=== PATIENT | female | born 1955 | race Caucasian/White ===

== ENCOUNTER → 2017-05-20 | Outpatient (CLI) | payer OTHER ==
[~2017-05-20] MED LIST: CRESTOR40 MG PO; GLUCOPHAGE500 MG PO
== END | disposition home or self-care (01) ==
LOC: RAD 09:57
DX: Z02.71 Encounter for disability determination (principal); M11.261 Other chondrocalcinosis, right knee; M17.11 Unilateral primary osteoarthritis, right knee
CPT/HCPCS: 73560

== ENCOUNTER → 2017-06-10 | Outpatient (CLI) | payer OTHER ==
[~2017-06-10] VITALS: Ht 162.6 cm; Wt 68.1 kg
[~2017-06-10] MED LIST changes: +ANORO ELLIPTA1 EACH IH; +DITROPAN XL10 MG PO; +NAPROSYN500 MG PO; +VENTOLIN HFA18 GM IH; +ZANTAC150 MG PO
== END | disposition home or self-care (01) ==
LOC: AMB 13:57
DX: R19.7 Diarrhea, unspecified (principal); R10.31 Right lower quadrant pain; Z53.09 Procedure and treatment not carried out because of other contraindication; K59.00 Constipation, unspecified; R12 Heartburn; R68.81 Early satiety; E11.9 Type 2 diabetes mellitus without complications; E78.5 Hyperlipidemia, unspecified; F32.9 Major depressive disorder, single episode, unspecified; Z77.22 Contact with and (suspected) exposure to environmental tobacco smoke (acute) (chronic); Z87.891 Personal history of nicotine dependence
CPT/HCPCS: 88305; 88313

== ENCOUNTER 2017-12-18 15:06 | Emergency (ER) | payer OTHER ==
[~2017-12-18] VITALS: Ht 160 cm; Wt 61.6 kg
[2017-12-18 16:00] LABS: BASOPHIL (%) 0.4 % (0-1); EOSINOPHIL (%) 0.8 % (0-5); EOSINOPHIL COUNT 0.1 K/uL (0-0.3); HEMATOCRIT 36.8 % (36.0-46.0); HEMOGLOBIN 12.1 G/DL (11.9-15.5); IMMATURE GRANULOCYTE (%) 0.3 % (0.0-0.7); LYMPHOCYTE (%) 25.6 % (15-42); LYMPHOCYTE COUNT 2.3 K/uL (1.0-2.8); MCH 29.3 PG (29.0-34.0); MCHC 32.9 G/DL (30.0-36.0); MCV 89.1 FL (83-99); MONOCYTE (%) 7.6 % (3-12); MONOCYTE COUNT 0.7 K/uL (0-0.8); NEUTROPHIL (%) 65.3 % (45-76); NEUTROPHIL COUNT 5.8 K/uL (1.8-6.4); PLATELET COUNT 295 K/uL (156-360); RBC DIS.WIDTH-CV 14.4 % (11.8-14.6); RBC DIS.WIDTH-SD 46.9 % (39-53); RED BLOOD COUNT 4.13 M/uL (3.80-5.20); WHITE BLOOD COUNT 8.9 K/uL (4.1-10.2)
[2017-12-18 16:08] LABS: ALBUMIN 4.1 g/dL (3.2-4.8); CHLORIDE 106 mEq/L (99-109); POTASSIUM 4.1 mEq/L (3.7-5.4); SODIUM 144 mEq/L (136-147)
[2017-12-18 16:10] LABS: GLUCOSE 95 mg/dL (70-99)
[2017-12-18 16:12] LABS: TOTAL BILIRUBIN 0.5 mg/dL (0.0-1.0)
[2017-12-18 16:14] LABS: ALKALINE PHOSPHATASE 100 IU/L (3-129); CREATININE 0.8 mg/dL (0.6-1.3); GFR ESTIMATE (CALCULATED) > 59 mL/min/
[2017-12-18 16:15] LABS: UREA NITROGEN (BUN) 9 mg/dL (9-23)
[2017-12-18 16:16] LABS: AST (GOT) 13 IU/L (2-34)
[2017-12-18 16:17] LABS: ALT (GPT) 13 IU/L (3-49); LIPASE 19 U/L (1.0-51.0)
[2017-12-18 16:21] LABS: APPEARANCE SL.HAZY ((CLEAR)); BILIRUBIN NEGATIVE; BLOOD NEGATIVE; COLOR YELLOW ((YELLOW)); GLUCOSE (STRIP) NEGATIVE; KETONES NEGATIVE; LEUKOCYTES LARGE; NITRITE NEGATIVE; PROTEIN (STRIP) NEGATIVE; SPECIFIC GRAVITY 1.009 (1.000-1.030); UROBILINOGEN 0.2 MG/DL (0.2-1.0)
[2017-12-18 16:23] LABS: TROP-I INTERPRETATION NEGATIVE; TROPONIN-I < 0.01 ng/mL (0.0-0.30)
[2017-12-18 16:41] LABS: BACTERIA RARE /HPF; EPITHELIAL CELLS 2+ /HPF; MUCUS TRACE /LPF; UCUL ADDED? YES
[2017-12-18 18:35] LABS: THYROTROPIN (TSH) 8.4 MIU/L (0.4-5.5)
[2017-12-18] MEDS ORDERED: KEFLEX500 MG PO (19:59)
[2017-12-18 20:05] VITALS: BP 135/79
== END 2017-12-18 20:08 | disposition home or self-care (01) ==
LOC: EME 15:06
PROVIDERS: Emergency Medicine
DX: E86.0 Dehydration (principal); R42 Dizziness and giddiness; N39.0 Urinary tract infection, site not specified; E11.51 Type 2 diabetes mellitus with diabetic peripheral angiopathy without gangrene; I70.209 Unspecified atherosclerosis of native arteries of extremities, unspecified extremity; R94.6 Abnormal results of thyroid function studies; J43.9 Emphysema, unspecified; I10 Essential (primary) hypertension; E78.5 Hyperlipidemia, unspecified; K21.9 Gastro-esophageal reflux disease without esophagitis; Z87.891 Personal history of nicotine dependence
CPT/HCPCS: 70450; 71046; 74177; 80053; 81003; 83690; 84443; 84484; 85025; 87086; 93005; 99281; 99285; J7030; J7040

== ENCOUNTER → 2018-02-14 | Outpatient (CLI) | payer OTHER ==
[~2018-02-14] MED LIST changes: +KEFLEX500 MG PO
== END | disposition home or self-care (01) ==
LOC: CDC 11:59
DX: Z01.810 Encounter for preprocedural cardiovascular examination (principal); I70.25 Atherosclerosis of native arteries of other extremities with ulceration; R94.31 Abnormal electrocardiogram [ECG] [EKG]
CPT/HCPCS: 93000

== ENCOUNTER 2018-03-28 22:34 | Inpatient (IN) | payer OTHER ==
[~2018-03-28] VITALS: Ht 162.6 cm; Wt 65.1 kg
[~2018-03-28 22:34] MED LIST changes: -ANORO ELLIPTA1 EACH IH; +ASPIRIN81 M2 PO; +CILOSTAZOL50 MG PO; +DITROPAN5 MG PO; +INHALER; +LIPITOR20 MG PO; +MECLIZINE HCL25 MG PO; +SPIRIVA18 MCG IH; +STOOL SOFTENER100 MG PO; +SYNTHROID25 MCG PO
[2018-03-29 08:33] VITALS: BP 116/61
[2018-03-29 13:29] LABS: HEMATOCRIT 37.6 % (36.0-46.0); HEMOGLOBIN 12.1 G/DL (11.9-15.5); MCH 29.2 PG (29.0-34.0); MCHC 32.2 G/DL (30.0-36.0); MCV 90.8 FL (83-99); PLATELET COUNT 284 K/uL (156-360); RBC DIS.WIDTH-CV 14.5 % (11.8-14.6); RED BLOOD COUNT 4.14 M/uL (3.80-5.20); WHITE BLOOD COUNT 10.8 K/uL (4.1-10.2)
[2018-03-29 13:54] LABS: CHLORIDE 105 MEQ/L (99-109); CREATININE 0.8 MG/DL (0.6-1.3); GFR ESTIMATE (CALCULATED) > 59 mL/min/; GLUCOSE 128 mg/dL (70-99); POTASSIUM 4.5 MEQ/L (3.7-5.4); SODIUM 140 MEQ/L (136-147); UREA NITROGEN (BUN) 22 mg/dL (9-23)
[2018-03-29 13:56] LABS: TROP-I INTERPRETATION NEGATIVE; TROPONIN-I < 0.01 ng/mL (0.0-0.30)
[2018-03-29 21:25] VITALS: BP 99/52
[2018-03-30 00:35] VITALS: BP 108/48
[2018-03-30 04:45] VITALS: BP 111/54
[2018-03-30 05:55] LABS: TROP-I INTERPRETATION NEGATIVE; TROPONIN-I < 0.01 ng/mL (0.0-0.30)
[2018-03-30 05:56] LABS: HEMATOCRIT 33.2 % (36.0-46.0); HEMOGLOBIN 10.5 G/DL (11.9-15.5); MCH 28.3 PG (29.0-34.0); MCHC 31.6 G/DL (30.0-36.0); MCV 89.5 FL (83-99); PLATELET COUNT 270 K/uL (156-360); RBC DIS.WIDTH-CV 14.3 % (11.8-14.6); RBC DIS.WIDTH-SD 46.5 % (39-53); RED BLOOD COUNT 3.71 M/uL (3.80-5.20)
[2018-03-30 06:14] LABS: CHLORIDE 105 MEQ/L (99-109); CREATININE 0.9 MG/DL (0.6-1.3); GFR ESTIMATE (CALCULATED) > 59 mL/min/; GLUCOSE 126 mg/dL (70-99); POTASSIUM 4.2 MEQ/L (3.7-5.4); SODIUM 140 MEQ/L (136-147); UREA NITROGEN (BUN) 17 mg/dL (9-23)
[2018-03-30] MEDS ORDERED: HYDROCODON-ACE1 EAC7 PO (07:01)
[2018-03-30 07:04] VITALS: BP 134/63
== END 2018-03-30 11:53 | disposition home or self-care (01) | DRG 254 ==
LOC: CANRESERV 22:34 → ENRESERV 22:34 → 2SOUTH 03-29 07:00 → 4EAST 03-29 07:36 → 2SOUTH 03-29 09:40 → ENRESERV 03-29 15:04 → 2SOUTH 03-29 15:59 → ENRESERV 03-29 19:27 → 4EAST 03-29 21:17 → ENPENDDIS 03-30 → 4EAST 03-30 11:53
PROVIDERS: Surgery
PROC: B41F1ZZ Fluoroscopy of Right Lower Extremity Arteries using Low Osmolar Contrast (ICD-10-PCS; principal; 2018-03-29)
PROC: 041K0JJ Bypass Right Femoral Artery to Left Femoral Artery with Synthetic Substitute, Open Approach (ICD-10-PCS; principal; 2018-03-29)
PROC: 04CK0ZZ Extirpation of Matter from Right Femoral Artery, Open Approach (ICD-10-PCS; principal; 2018-03-29)
DX: I70.211 Atherosclerosis of native arteries of extremities with intermittent claudication, right leg (principal); J44.9 Chronic obstructive pulmonary disease, unspecified; I10 Essential (primary) hypertension; E03.9 Hypothyroidism, unspecified; K21.9 Gastro-esophageal reflux disease without esophagitis; M19.90 Unspecified osteoarthritis, unspecified site; Z87.891 Personal history of nicotine dependence
CPT/HCPCS: 80048; 84484; 85027; 86850; 86900; 86901; 93005; 94799; C1725; C1769; C2628; J0690; J1170; J1644; J1650; J2250; J2720; J3010; J7120